=== PATIENT | female | born 1980 | race Caucasian/White ===

== ENCOUNTER 2022-01-03 06:47 | Emergency (ER) | payer BC ==
[2022-01-03] MEDS ORDERED: MORPHINE 4 MG/ML SYR ONE (07:12)
[2022-01-03] MEDS ORDERED: ONDANSETRON 4 MG/2 ML VIAL ONE (07:13)
[2022-01-03] MEDS ORDERED: NA CHLORIDE 0.9% 2,000 ML ONE (07:13)
[2022-01-03] MEDS ORDERED: KETOROLAC 30 MG/ML INJ ONE (07:13)
[2022-01-03 07:29] LABS: Absolute Lymphocytes (CBC) 2.7 K/uL (0.7-4.9); Hematocrit 42.9 % (36.0-45.0); Lymphocytes % 32.8 % (15.3-44.8); MCV 85.6 fL (80-100); MPV 8.5 fL (7.6-11.3); RBC Red Blood Cell Count 5.01 M/uL (3.86-4.86)
[2022-01-03 07:36] LABS: Urine Blood 3+ (Negative); Urine Glucose Negative (Negative); Urine Protein 1+ (Negative); Urine Specific Gravity >=1.030 (1.005-1.030); Urine pH 5.5 (5.0-7.0)
[2022-01-03 07:51] LABS: Urine Bacteria <20 /HPF (<20); Urine RBC >50 /HPF (NONE SEEN)
[2022-01-03 07:53] LABS: Albumin 3.9 g/dL (3.4-5.0); Bilirubin Total 0.4 mg/dL (0.2-1.0); Potassium 3.6 mmol/L (3.5-5.1); Protein, Total 7.6 g/dL (6.4-8.2)
--- NOTE | 2022-01-03 08:48 | EDPHYS ---
Physician Documentation [facility] Name: Maria G Wynne Age: 41 yrs Sex: Female : 1980 Arrival Date: 01/03/2022 Time: 06:51 Bed 18 Private MD: ED Physician Avi Reese HPI: 01/03 07:13 This 41 yrs old Female presents to ER via Ambulatory with complaints of Flank Pain. rn 07:13 This 41 yrs old Female presents to ER via Ambulatory with complaints of Flank Pain. rn 07:13 This 41 yrs old Female presents to ER via Ambulatory with complaints of Abdominal pain. rn 07:29 The patient presents with abdominal pain right lower quadrant. Onset: The rn symptoms/episode began/occurred last night. The symptoms radiate to the right flank. Associated signs and symptoms: Pertinent positives: nausea, Pertinent negatives: blood in stools, chest pain, fever, shortness of breath, vaginal discharge, vomiting blood. The symptoms are described as intermittent, sharp. Modifying factors: The symptoms are alleviated by nothing, the symptoms are aggravated by nothing. Severity of pain: At its worst the pain was moderate in the emergency department the pain is unchanged. The patient has not experienced similar symptoms in the past. The patient has not recently seen a physician. Pt reports right lower abd pain, began last night, got better, but came back worse this AM. Assoc with nausea and urinary urgency. No fever. No hx of kidney stones but stones in mother. NO trauma. No vomiting/diarrhea. . 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 - Social history:: Smoking status: Patient denies any tobacco usage or history of. - Family history:: not pertinent. - Hospitalizations: : No recent hospitalization is reported. ROS: 07:29 Constitutional: Negative for fever, chills, and weight loss, Eyes: Negative for injury, rn pain, redness, and discharge, Neck: Negative for injury, pain, and swelling, Cardiovascular: Negative for chest pain, palpitations, and edema, Respiratory: Negative for shortness of breath, cough, wheezing, and pleuritic chest pain, Abdomen/GI: + RLQ abd pain with nausea Back: + right lower back pain : Negative for injury, bleeding, discharge, and swelling, MS/Extremity: Negative for injury and deformity, Skin: Negative for injury, rash, and discoloration, Neuro: Negative for headache, weakness, numbness, tingling, and seizure. Exam: 07:29 Constitutional: This is a well developed, well nourished patient who is awake, alert, rn appears slightly uncomfortable Head/Face: Normocephalic, atraumatic. Cardiovascular: Regular rate and rhythm. No pulse deficits. Respiratory: No increased work of breathing, no retractions or nasal flaring. Abdomen/GI: Soft, non-tender Back: No spinal tenderness. No costovertebral tenderness. Full range of motion. Skin: Warm, dry MS/ Extremity: Pulses equal, no cyanosis. Neuro: Awake and alert, GCS 15 Vital Signs: 06:54 BP 160 / 120; Pulse 97; Resp 18; Temp 97.4; Pulse Ox 100% on R/A; Weight 117.93 kg; tw5 Height 5 ft. 7 in. (170.18 cm); Pain 9/10; 07:18 Pain 7/10; tw2 07:39 BP 116 / 55; Pulse 82; Resp 17; Pulse Ox 97% on R/A; tw2 08:27 BP 139 / 85; Pulse 79; Resp 17; Pulse Ox 100% on R/A; tw2 09:43 BP 120 / 66; Pulse 79; Resp 17; Pulse Ox 100% on R/A; Pain 0/10; tw2 06:54 Body Mass Index 40.72 (117.93 kg, 170.18 cm) tw5 MDM: 07:00 Patient medically screened. rn 08:26 Differential diagnosis: appendicitis, non-specific abd pain, Ureterolithiasis, urinary rn tract infection. Data reviewed: vital signs, nurses notes, lab test result(s), radiologic studies, CT scan, and as a result, I will discharge patient. Counseling: I had a detailed discussion with the patient and/or guardian regarding: the historical points, exam findings, and any diagnostic results supporting the discharge/admit diagnosis, lab results, radiology results, the need for outpatient follow up, to return to the emergency department if symptoms worsen or persist or if there are any questions or concerns that arise at home. Response to treatment: the patient's symptoms have resolved after treatment, Pt now pain free.. 08:47 Special discussion: I discussed with the patient/guardian in detail that at this point rn there is no indication for admission to the hospital. It is understood, however, that if the symptoms persist or worsen the patient needs to return immediately for re-evaluation. 01/03 06:58 Order name: CBC with Diff; Complete Time: 07:42 jesenia 01/03 06:58 Order name: CMP; Complete Time: 07:54 [facility] 01/03 06:58 Order name: Lipase; Complete Time: 07:54 jesenia 01/03 06:58 Order name: Urine Microscopic Only; Complete Time: 07:54 [facility] 01/03 07:37 Order name: Urine Dipstick-Ancillary; Complete Time: 07:42 EDMS 01/03 06:58 Order name: IV Saline Lock; Complete Time: 07:19 [facility] 01/03 06:58 Order name: Labs collected and sent; Complete Time: 07:19 jesenia 01/03 06:58 Order name: CT Stone Protocol; Complete Time: 09:10 [facility] 01/03 06:58 Order name: Urine Dipstick-Ancillary (obtain specimen); Complete Time: 07:36 jesenia 01/03 06:58 Order name: Urine Test (obtain specimen); Complete Time: 07:36 [facility] Administered Medications: 07:18 Drug: Zofran (Ondansetron) 4 mg Route: IVP; Site: right antecubital; tw2 08:53 Follow up: Response: No adverse reaction tw2 07:18 Drug: NS 0.9% 1000 ml Route: IV; Rate: 1 bolus; Site: right antecubital; tw2 09:43 Follow up: Response: No adverse reaction; IV Status: Completed infusion; IV Intake: tw2 1000ml 07:20 Drug: Ketorolac 30 mg Route: IVP; Site: right antecubital; tw2 08:53 Follow up: Response: No adverse reaction tw2 07:20 Drug: morphine 4 mg Route: IVP; Infused Over: 4 mins; Site: right antecubital; tw2 08:53 Follow up: Response: Pain is decreased tw2 07:23 Drug: NS 0.9% 1000 ml Route: IV; Rate: 1 bolus; Site: right antecubital; tw2 09:43 Follow up: Response: No adverse reaction; IV Status: Completed infusion; IV Intake: tw2 1000ml Disposition Summary: 01/03/22 08:47 Discharge Ordered Location: Home rn Problem: new rn Symptoms: are resolved rn Condition: Stable rn Diagnosis - Urinary calculus, unspecified rn Followup: rn - With: Private Physician - When: As needed - Reason: Recheck today's complaints, Re-evaluation by your physician Discharge Instructions: - Discharge Summary Sheet rn - Kidney Stones rn - Renal Colic rn Forms: - Medication Reconciliation Form rn - Thank You Letter rn - Antibiotic airborne operations - Prescription Opioid Use rn - Work release form tw2 Prescriptions: - Tramadol 50 mg Oral Tablet - take 1 tablet by ORAL route every 8 hours as needed; 12 tablet; Refills: 0, rn Product Selection Permitted Signatures: Dispatcher [employer] Juan Luis Meehan MD MD cha Nieto, Roman, MD MD rn Wise, Tara, RN RN 2 Jolene Chau tw5
--- NOTE | 2022-01-03 08:48 | ER ---
Nurse's Notes [facility] Name: Maria G Wynne Age: 41 yrs Sex: Female : 1980 Arrival Date: 01/03/2022 Time: 06:51 Bed 18 Private MD: Diagnosis: Urinary calculus, unspecified Presentation: 01/03 06:54 Chief complaint: Patient states: "I was having some flank pain last night, it went away tw5 but now it has come back worse.". Coronavirus screen: Vaccine status: Patient reports receiving the 2nd dose of the covid vaccine. Moderna. Ebola Screen: Patient negative for fever greater than or equal to 101.5 degrees Fahrenheit, and additional compatible Ebola Virus Disease symptoms Patient denies exposure to infectious person. Patient denies travel to an Ebola-affected area in the 21 days before illness onset. Initial Sepsis Screen: Does the patient meet any 2 criteria? No. Patient's initial sepsis screen is negative. Does the patient have a suspected source of infection? No. Patient's initial sepsis screen is negative. Risk Assessment: Do you want to hurt yourself or someone else? Patient reports no desire to harm self or others. Onset of symptoms was January 03, 2022 at 05:40. 06:54 Method Of Arrival: Ambulatory tw5 06:54 Acuity: ABDIAZIZ 3 tw5 Triage Assessment: 06:56 General: Appears uncomfortable, obese, Behavior is calm, cooperative, appropriate for tw5 age. Pain: Complains of pain in anterior aspect of right lateral abdomen Pain currently is 7 out of 10 on a pain scale. 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 - Social history:: Smoking status: Patient denies any tobacco usage or history of. - Family history:: not pertinent. - Hospitalizations: : No recent hospitalization is reported. Screenin:24 Abuse screen: Denies threats or abuse. Nutritional screening: No deficits noted. tw2 Tuberculosis screening: No symptoms or risk factors identified. Fall Risk None identified. Assessment: 07:18 General: Appears in no apparent distress. uncomfortable, Behavior is calm, cooperative, tw2 appropriate for age. Pain: Complains of pain in abdomen and right flank. Neuro: Level of Consciousness is awake, alert, obeys commands, Oriented to person, place, time, situation. Cardiovascular: Capillary refill < 3 seconds Patient's skin is warm and dry. Respiratory: Airway is patent Respiratory effort is even, unlabored, Respiratory pattern is regular, symmetrical. GI: Reports lower abdominal pain, nausea. : No signs and/or symptoms were reported regarding the genitourinary system. EENT: No signs and/or symptoms were reported regarding the EENT system. Musculoskeletal: Range of motion: intact in all extremities. 08:27 Reassessment: Patient appears in no apparent distress at this time. Patient and/or tw2 family updated on plan of care and expected duration. Pain level reassessed. Patient is alert, oriented x 3, equal unlabored respirations, skin warm/dry/pink. Patient states feeling better. Patient states symptoms have improved. 09:00 Reassessment: provider at bedside giving results at this time. tw2 09:44 Reassessment: Patient appears in no apparent distress at this time. Patient and/or tw2 family updated on plan of care and expected duration. Pain level reassessed. Patient is alert, oriented x 3, equal unlabored respirations, skin warm/dry/pink. Patient states feeling better. Vital Signs: 06:54 BP 160 / 120; Pulse 97; Resp 18; Temp 97.4; Pulse Ox 100% on R/A; Weight 117.93 kg; tw5 Height 5 ft. 7 in. (170.18 cm); Pain 9/10; 07:18 Pain 7/10; tw2 07:39 BP 116 / 55; Pulse 82; Resp 17; Pulse Ox 97% on R/A; tw2 08:27 BP 139 / 85; Pulse 79; Resp 17; Pulse Ox 100% on R/A; tw2 09:43 BP 120 / 66; Pulse 79; Resp 17; Pulse Ox 100% on R/A; Pain 0/10; tw2 06:54 Body Mass Index 40.72 (117.93 kg, 170.18 cm) tw5 ED Course: 06:51 Patient arrived in ED. bp1 06:51 Bed in low position. Call light in reach. Adult w/ patient. Pulse ox on. NIBP on. tw2 06:55 Triage completed. tw5 06:56 Arm band placed on right wrist. tw5 07:00 Avi Reese MD is Attending Physician. rn 07:14 Initial lab(s) drawn, by nd, sent to lab. Inserted saline lock: 20 gauge in right vg1 antecubital area, using aseptic technique. Blood collected. 07:21 Susannah Guerrero RN is Primary Nurse. tw2 07:55 CT Stone Protocol In Process Unspecified. EDMS 08:[address] Scan, Awaiting: awaiting CT scan results PRIOR to discharge per Dr. Reese. tw2 09:03 Awaiting: completion of IV fluids PRIOR to discharge per pts request. tw2 09:44 No provider procedures requiring assistance completed. IV discontinued, intact, tw2 bleeding controlled, No redness/swelling at site. Pressure dressing applied. Administered Medications: 07:18 Drug: Zofran (Ondansetron) 4 mg Route: IVP; Site: right antecubital; tw2 08:53 Follow up: Response: No adverse reaction tw2 07:18 Drug: NS 0.9% 1000 ml Route: IV; Rate: 1 bolus; Site: right antecubital; tw2 09:43 Follow up: Response: No adverse reaction; IV Status: Completed infusion; IV Intake: tw2 1000ml 07:20 Drug: Ketorolac 30 mg Route: IVP; Site: right antecubital; tw2 08:53 Follow up: Response: No adverse reaction tw2 07:20 Drug: morphine 4 mg Route: IVP; Infused Over: 4 mins; Site: right antecubital; tw2 08:53 Follow up: Response: Pain is decreased tw2 07:23 Drug: NS 0.9% 1000 ml Route: IV; Rate: 1 bolus; Site: right antecubital; tw2 09:43 Follow up: Response: No adverse reaction; IV Status: Completed infusion; IV Intake: tw2 1000ml Medication: 07:24 VIS not applicable for this client. tw2 Intake: 09:43 IV: 1000ml; Total: 1000ml. tw2 09:43 IV: 1000ml; Total: 2000ml. tw2 Outcome: 08:47 Discharge ordered by . rn 09:44 Discharged to home ambulatory, with significant other. tw2 09:44 Condition: stable 09:44 Discharge instructions given to patient, significant other, Instructed on discharge instructions, follow up and referral plans. medication usage, Demonstrated understanding of instructions, follow-up care, medications, Prescriptions given X 1. 09:44 Patient left the ED. tw2 Signatures: Dispatcher [employer] EDMS Avi Reese MD MD rn Wise, Tara, RN RN tw2 Mago Muñiz RN RN 1 Araceli Suárez Tiffany tw5 Corrections: (The following items were deleted from the chart) 06:56 06:54 Onset of symptoms was January 02, 2022 at 05:40 tw5 tw5
--- NOTE | 2022-01-03 08:53 | RAD REPORT ---
EXAM DESCRIPTION: CT - Stone Protocol - 01/03/2022 7:53 am CLINICAL HISTORY: Flank pain. Flank pain, kidney stone suspected COMPARISON: No comparisons TECHNIQUE: Axial images were obtained without oral or IV contrast. Lack of contrast limits solid org an and vascular assessment. The [id number] spans the entirety of the system partially obscuring uppermost abdomen and lung bases. Coronal reformatted images were obtained and reviewed. All CT scans are performed using dose optimization technique as appropriate and may include automated exposure control or mA/KV adjustment according to patient size. FINDINGS: The lower lung torrez are clear. Imaged portions of the liver and spleen show no suspicious findings on non-contrast imaging. The panc reas and adrenal glands are normal. No pathologic lymphadenopathy in the abdomen or pelvis. 4 mm stone is seen distal right ureter resulting in mild right hydronephrosis. Additional stones are present both kidneys the largest on the right measuring 7 mm. No bowel obstruction, free air, free fluid or abscess. Normal appendix noted.Small fat containing umb ilical hernia. No significant bony abnormality. IMPRESSION: 4 mm stone distal right ureter resulting mild right hydronephrosis Additional bilateral nephrolithiasis.
[2022-01-03 09:59] VITALS: TEMP 97.4
[2022-01-03 10:19] VITALS: O2SAT 100
[2022-01-03 10:21] VITALS: BP 120/66
== END 2022-01-03 09:44 | disposition home or self-care (01) ==
LOC: ER 06:47
DX: N20.9 Urinary calculus, unspecified (principal)
CPT/HCPCS: 85025; 36415; 83690; 80053; 76377; 74176; J7030; J2405; 81003; 81015; 96361; 96374; 96375; 99284